=== PATIENT | male | born 1970 | race Caucasian/White ===

== ENCOUNTER 2022-10-15 21:36 | Emergency (ER) | payer MEDICAID, SELFPAY ==
[2022-10-15 21:37] VITALS: BP 174/92; PULSE 83; RESP 18; TEMP 36.8; O2SAT 95; BMI 25.0
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
[2022-10-15] MEDS: oxyCODONE 5 MG Tablet PO (22:05)
--- NOTE | 2022-10-15 22:47 | ED.RN ---
ANSWERED CALL LIGHT. PT REPORTS HE WAS ABLE TO URINATE IN THE URINAL. 100 CC YELLOW URINE NOTED. DONTA CARE DONE AND DR STARK MADE AWARE.
[2022-10-15 23:49] VITALS: BP 169/86; PULSE 71; RESP 15; O2SAT 96
[2022-10-16] MEDS: Atorvastatin Calcium 40 MG Tablet PO (00:05)
[2022-10-16] MEDS: Amiodarone 200 MG Tablet PO ×2 (00:05→09:13)
[2022-10-16 00:08] VITALS: BP 146/128; PULSE 75; RESP 15; O2SAT 96
--- NOTE | 2022-10-16 01:18 | ED.RN ---
EMPTIED URINAL FOR 100 CC YELLOW URINE.
[2022-10-16 02:08] VITALS: BP 158/87; PULSE 73; RESP 15; O2SAT 97
[2022-10-16] MEDS: oxyCODONE 5 MG Tablet 10 MG PO ×3 (02:12→11:18)
[2022-10-16 04:32] VITALS: BP 153/74; PULSE 77; RESP 15; O2SAT 95
--- NOTE | 2022-10-16 04:44 | ED.RN ---
greene catheter emptied for 700 cc urine and rodolfo care done at this time.
[2022-10-16 06:42] VITALS: BP 148/104; PULSE 81; RESP 15; O2SAT 95
[2022-10-16] MEDS: Tamsulosin HCl 0.4 MG Capsule PO (09:13)
[2022-10-16] MEDS: Aspirin 81 MG TAB.CHEW PO (09:13)
[2022-10-16] MEDS: Metoprolol(XL)Succ 100 MG Tablet PO (09:13)
--- NOTE | 2022-10-16 10:45 | CM.ED ---
Social Work Voicemail received from patient spouse, Sridevi. Sridevi request return phone call. Telephone call to Sridevi. Introduced self and social media executive role. Sridevi communicates desire for patient to transfer to another nursing facility due to care at [facility] not meeting patient needs. Sridevi reports that patient pain has not been managed and patient states to not be getting care. Sridevi reports to have spoken with [facility] yesterday and was hoping to be able to transfer there from the ED. This social media executive plans to look into the situation for Sridevi and patient and get back to both parties. Will continue to follow. Perla MARLOW, STACIE
[2022-10-16 11:19] VITALS: BP 131/82; PULSE 83; RESP 16; O2SAT 96
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
--- NOTE | 2022-10-16 12:48 | ED.RN ---
THIS RN CALLED REPORT BACK TO FAVIO GARCIA INFORMED OF PT DISCHARGE AND CARE IN ED. NURSE VERBALIZES UNDERSTANDING.
--- NOTE | 2022-10-16 13:40 | ED.RN ---
RESOURCE ECONOMIST TRIED TO FAX DISCHARGE INSTRUCTIONS TO [facility] AT [phone], SINCE THE INSTRUCTIONS DID NOT GO WITH PT ON TRANSPORT. THIS RN SPOKE TO RADHA NURSE CARING FOR PT AND REVIEWED THE DISCHARGE PAPERWORK WITH THE NURSE. NURSE VERBALIZES NO QUESTIONS.
== END 2022-10-16 13:00 | disposition skilled nursing facility (03) ==
PROVIDERS: Emergency Provider Emergency Medicine; PCP Student in an Organized Health Care Education/Training Program; Visit Provider Emergency Medicine
DX: Z75.9 Unspecified problem related to medical facilities and other health care (principal); G89.18 Other acute postprocedural pain; E78.00 Pure hypercholesterolemia, unspecified; F17.210 Nicotine dependence, cigarettes, uncomplicated; I10 Essential (primary) hypertension; R39.198 Other difficulties with micturition
CPT/HCPCS: 99285

== ENCOUNTER → 2023-05-15 | Outpatient (CLI) | payer MEDICAID, SELFPAY ==
[2023-05-15 11:00] LABS: Amphetamine Urine VISTA NEGATIVE (<1000 ng/mL); Barbiturate Urine VISTA NEGATIVE (< 200 ng/mL); Benzodiazepine Urine VISTA NEGATIVE (< 200 ng/mL); Cocaine Urine VISTA NEGATIVE (< 300 ng/mL); Ecstacy Urine VISTA NEGATIVE (< 500 ng/mL); Methadone Urine VISTA NEGATIVE (< 300 ng/mL); PCP Urine VISTA NEGATIVE (< 25 ng/mL); THC Urine VISTA POSITIVE (< 50 ng/mL); Vista UDS pH Range 7
[2023-05-15 11:01] LABS: BUP Internal Control LINE = VALID (VALID); Buprenorphine Drug Screen Positive (<10 ng/mL)
== END | disposition home or self-care (01) ==
PROVIDERS: PCP Student in an Organized Health Care Education/Training Program; Referring Provider Anesthesiology Pain Medicine; Visit Provider Anesthesiology Pain Medicine
DX: F11.20 Opioid dependence, uncomplicated (principal)
CPT/HCPCS: 80307

== ENCOUNTER → 2025-02-09 | Outpatient (CLI) | payer MEDICAID, SELFPAY ==
[2025-02-09 20:29] LABS: Amphetamine Urine NEGATIVE (<1000 ng/mL); Barbiturate Urine NEGATIVE (< 200 ng/mL); Benzodiazepine Urine NEGATIVE (< 200 ng/mL); Buprenorphine Urine NEGATIVE (< 200 ng/mL); Cocaine Urine NEGATIVE (< 300 ng/mL); Fentanyl, Urine NEGATIVE; Methadone Urine NEGATIVE (< 300 ng/mL); Opiates Urine NEGATIVE (< 300 ng/mL); Oxycodone, Urine NEGATIVE (< 100 ng/mL); PCP Urine NEGATIVE (< 25 ng/mL); THC Urine PRESUMPTIVE POSITIVE (< 50 ng/mL)
== END | disposition home or self-care (01) ==
LOC: LAB 16:48
PROVIDERS: PCP Student in an Organized Health Care Education/Training Program; Referring Provider Anesthesiology Pain Medicine; Visit Provider Anesthesiology Pain Medicine
DX: F11.20 Opioid dependence, uncomplicated (principal)
CPT/HCPCS: 80307